=== PATIENT | female | born 1980 | race Caucasian/White ===

== ENCOUNTER 2017-06-20 11:33 | Outpatient (CLI) | payer BC, OTHER ==
[~2017-06-20 11:33] MED LIST: Motrin PO; NATALCARE RX1 TABLET PO; Percocet 5/325,Endoc PO
[2017-06-20 11:49] VITALS: BP 135/69
[2017-06-20 12:47] VITALS: BP 145/78
[2017-06-20 13:04] VITALS: BP 142/85
[2017-06-20 13:18] VITALS: BP 124/77
[2017-06-20 13:33] VITALS: BP 119/73
[2017-06-20 13:33] LABS: UR CREATININE CONCENTRATION 192.1 MG/DL
[2017-06-20 13:37] LABS: ANION GAP 8 MEQ/L (2-14); CHLORIDE 106 MEQ/L (99-109); POTASSIUM 4.4 MEQ/L (3.7-5.4); SAMPLE HEMOLYSIS CHECK 0; SAMPLE ICTERIC CHECK 0; SAMPLE LIPEMIA CHECK 0; SODIUM 138 MEQ/L (136-147); TOTAL BILIRUBIN 0.3 MG/DL (0.0-1.0)
[2017-06-20 13:43] LABS: ALKALINE PHOSPHATASE 107 IU/L (3-129); GFR ESTIMATE (CALCULATED) > 59 mL/min/; GLUCOSE 80 mg/dL (70-99); UREA NITROGEN (BUN) 6 mg/dL (9-23)
[2017-06-20 13:58] LABS: EOSINOPHIL (%) 0.5 % (0-5); EOSINOPHIL COUNT 0.1 K/uL (0-0.3); HEMATOCRIT 37.3 % (36.0-46.0); IMMATURE GRANULOCYTE (%) 0.4 % (0.0-0.7); INSTRUMENT ABS NEUTROPHIL CT 8.5 K/uL; LYMPHOCYTE COUNT 1.8 K/uL (1.0-2.8); MCH 27.8 PG (29.0-34.0); MCHC 31.9 G/DL (30.0-36.0); MCV 87.1 FL (83-99); MEAN PLAT.VOLUME 10.8 uM^3 (9.5-12.4); MONOCYTE (%) 6.3 % (3-12); MONOCYTE COUNT 0.7 K/uL (0-0.8); NEUTROPHIL (%) 76.3 % (45-76); NEUTROPHIL COUNT 8.5 K/uL (1.8-6.4); PLATELET COUNT 259 K/uL (156-360); RBC DIS.WIDTH-CV 13.8 % (11.8-14.6); RBC DIS.WIDTH-SD 43.8 % (39-53); RED BLOOD COUNT 4.28 M/uL (3.80-5.20); WHITE BLOOD COUNT 11.1 K/uL (4.1-10.2)
== END 2017-06-20 15:15 | disposition home or self-care (01) ==
LOC: LDRP-OP 11:33 → 2WEST 11:35
PROVIDERS: Midwife
DX: O16.3 Unspecified maternal hypertension, third trimester (principal); Z3A.38 38 weeks gestation of pregnancy; O09.523 Supervision of elderly multigravida, third trimester; O34.219 Maternal care for unspecified type scar from previous cesarean delivery
CPT/HCPCS: 59025; 80053; 82570; 84156; 85025; G0378

== ENCOUNTER 2017-06-25 05:31 | Inpatient (IN) | payer BC, OTHER ==
[~2017-06-25] VITALS: Ht 160 cm; Wt 115.0 kg
[2017-06-25] VITALS (7 sets, daily range): BP systolic 106–140; BP diastolic 60–89
[2017-06-25] MEDS ORDERED: ENDOCET 5-3251 EACH PO (17:47)
[2017-06-25] MEDS ORDERED: IBUPROFEN800 MG PO (17:47)
[2017-06-26 03:00] VITALS: BP 110/55
[2017-06-26 06:39] LABS: EOSINOPHIL (%) 0.2 % (0-5); HEMATOCRIT 33.3 % (36.0-46.0); IMMATURE GRANULOCYTE (%) 0.7 % (0.0-0.7); IMMATURE GRANULOCYTE COUNT 0.1 K/uL; INSTRUMENT ABS NEUTROPHIL CT 11.4 K/uL; LYMPHOCYTE COUNT 2.3 K/uL (1.0-2.8); MCHC 31.8 G/DL (30.0-36.0); MCV 88.1 FL (83-99); MEAN PLAT.VOLUME 10.5 uM^3 (9.5-12.4); MONOCYTE (%) 7.3 % (3-12); MONOCYTE COUNT 1.1 K/uL (0-0.8); NEUTROPHIL (%) 76.1 % (45-76); NEUTROPHIL COUNT 11.4 K/uL (1.8-6.4); PLATELET COUNT 196 K/uL (156-360); RBC DIS.WIDTH-CV 14.3 % (11.8-14.6); RBC DIS.WIDTH-SD 45.8 % (39-53); RED BLOOD COUNT 3.78 M/uL (3.80-5.20)
[2017-06-26 07:49] VITALS: BP 122/78
[2017-06-26 11:52] VITALS: BP 137/75
[2017-06-26 16:16] VITALS: BP 139/86
[2017-06-26 20:15] VITALS: BP 137/84
[2017-06-26 23:10] VITALS: BP 136/82
[2017-06-27 03:30] VITALS: BP 147/84
[2017-06-27 08:12] VITALS: BP 143/95
[2017-06-27 08:41] LABS: EOSINOPHIL (%) 0.3 % (0-5); HEMATOCRIT 31.8 % (36.0-46.0); IMMATURE GRANULOCYTE (%) 0.8 % (0.0-0.7); IMMATURE GRANULOCYTE COUNT 0.1 K/uL; INSTRUMENT ABS NEUTROPHIL CT 8.5 K/uL; LYMPHOCYTE COUNT 1.4 K/uL (1.0-2.8); MCH 27.6 PG (29.0-34.0); MCHC 31.4 G/DL (30.0-36.0); MCV 87.8 FL (83-99); MEAN PLAT.VOLUME 10.5 uM^3 (9.5-12.4); MONOCYTE (%) 5.5 % (3-12); MONOCYTE COUNT 0.6 K/uL (0-0.8); NEUTROPHIL (%) 80.1 % (45-76); NEUTROPHIL COUNT 8.5 K/uL (1.8-6.4); PLATELET COUNT 204 K/uL (156-360); RBC DIS.WIDTH-CV 14.4 % (11.8-14.6); RBC DIS.WIDTH-SD 46.2 % (39-53); RED BLOOD COUNT 3.62 M/uL (3.80-5.20); WHITE BLOOD COUNT 10.6 K/uL (4.1-10.2)
== END 2017-06-27 14:35 | disposition home or self-care (01) | DRG 765 ==
LOC: 2SOUTH → 2WEST 05:31 → 2SOUTH 09:01 → 2WEST 06-27 14:35
PROVIDERS: Obstetrics & Gynecology
DX: O34.211 Maternal care for low transverse scar from previous cesarean delivery (principal); O13.4 Gestational [pregnancy-induced] hypertension without significant proteinuria, complicating childbirth; O77.0 Labor and delivery complicated by meconium in amniotic fluid; O99.214 Obesity complicating childbirth; E66.9 Obesity, unspecified; Z68.41 Body mass index [BMI] 40.0-44.9, adult; Z30.2 Encounter for sterilization; Z3A.39 39 weeks gestation of pregnancy; Z37.0 Single live birth
CPT/HCPCS: 36415; 85025; 86850; 86900; 86901; 87641; 88302; 90686; J1100; J1580; J2274; J2405; J2765; J3010; J7050; J7120